=== PATIENT | male | born 1985 | race Two or more races ===

== ENCOUNTER 2019-06-25 09:04 | Emergency (ER) | payer SELFPAY ==
[~2019-06-25] VITALS: Ht 177.8 cm; Wt 69.9 kg
--- NOTE | 2019-06-25 09:06 | NUR ---
[id number] C/O NAUSEA & VOMITING SINCE YESTERDAY, TOOK PAIN MED FOR KNEE INJURY AND UNKNOWN 2PCS OF SLEEPING PILLS. TO ER BED 9, HOOKED TO MONITOR, CHANGED TO HOSP GOWN, PATIENT AOx 4, BREATHING EVEN AND UNLABORED. PROVIDED W WARM BLANKET, AWAITING MD GODOY.
--- NOTE | 2019-06-25 09:28 | NUR ---
DR JOHNSON AT BEDSIDE
[2019-06-25] MEDS ORDERED: NALOXONE HCL 0.4 MG/ML AMPUL IV ONE (09:30)
[2019-06-25] MEDS ORDERED: NALOXONE HCL 0.4 MG/ML AMPUL ONE (09:50)
[2019-06-25 09:58] LABS: BASOPHILS % (AUTO) 0.5 % (0.0-2.0); EOSINOPHILS % (AUTO) 0.2 % (0.0-6.0); HEMATOCRIT 42 % (39-51); HEMOGLOBIN 13.7 g/dL (13.5-17.5); LYMPHOCYTES # (AUTO) 0.6 /CMM (0.8-4.8); LYMPHOCYTES % (AUTO) 7.3 % (20.0-44.0); MEAN CORPUSCULAR HGB CONC 33 g/dl (31.0-36.0); MEAN CORPUSCULAR VOLUME 89 fL (80-96); MONOCYTES # (AUTO) 0.5 /CMM (0.1-1.30); MONOCYTES % (AUTO) 5.4 % (2.0-12.0); NEUTROPHILS # (AUTO) 7.5 /CMM (1.8-8.9); NEUTROPHILS % (AUTO) 86.6 % (43.0-81.0); PLATELET COUNT (AUTO) 242 /CMM (150-450); WHITE BLOOD COUNT (AUTO) 8.7 K/uL (4.3-11.0)
[2019-06-25 10:12] LABS: CARBON DIOXIDE 29 mmol/L (21-32); CHLORIDE 106 mmol/L (98-107); CREATININE 1.1 mg/dL (0.6-1.3); GLUCOSE 130 mg/dL (74-106); POTASSIUM 4.5 mmol/L (3.5-5.1); SODIUM SERUM 141 mmol/L (136-145); UREA NITROGEN, BLOOD 13 mg/dL (7-18)
[2019-06-25 10:18] LABS: ACETAMINOPHEN 0 ug/ml (10-30); ALANINE AMINOTRANSFERASE 24 U/L (12-78); ALBUMIN 3.8 g/dL (3.4-5.0); ALCOHOL, BLOOD < 3 mg/dL (0-0); ALKALINE PHOSPHATASE 52 U/L (46-116); ASPARTATE AMINOTRANSFERASE 20 U/L (15-37); BILIRUBIN,DIRECT 0.1 mg/dL (0.0-0.2); BILIRUBIN,TOTAL 0.5 mg/dL (0.2-1.0); SALICYLATE 0.3 mg/dL (2.8-20.0); TOTAL PROTEIN, SERUM 7.3 g/dL (6.4-8.2)
--- NOTE | 2019-06-25 12:06 | NUR ---
IV removed. Catheter intact and site benign. Pressure and 4x4 applied to site. No bleeding noted. Patient discharged to home with friend in stable condition. Written and verbal after care instructions given. Patient verbalizes understanding of instruction.
[2019-06-25 12:07] VITALS: BP 112/67
== END 2019-06-25 12:07 | disposition home or self-care (01) ==
LOC: ER 09:09
DX: R40.0 Somnolence (principal); F32.9 Major depressive disorder, single episode, unspecified
CPT/HCPCS: 36415; 80048; 80076; 80305; 80307; 80329; 85025; 96374; 99283; G0480; J2310